=== PATIENT | male | born 2000 | race Caucasian/White ===

== ENCOUNTER 2018-04-02 18:11 | Observation (INO) | payer BC, OTHER ==
--- NOTE | 2018-04-02 18:35 | ED ---
Respiratory - HPI Summary HPI Summary: This patient is a 18 year [facility] a female with a chief complaint of sharp mid sternal CP worse with inspiration that began yesterday. The patient rates the pain 5/10 in severity. Pt reports "I feel like Im not getting enough air, Im not short of breath, it just hurts." Patient denies n/v/d, fever, chills, cough, and exposure to sick person. Pt reports hx of two spontaneous pneumothoraxes and said this feels exactly the same. One resolved and the second time he had a tube placed with surgery. Patient had a syncopal episode during the blood draw and states this happens every time. No hx of DVT or PE. Denies any known trauma. - History of Current Complaint Chief Complaint: EDChestWallPain Stated Complaint: PAIN WHEN BREATHING Time Seen by Provider: 04/02/18 18:18 Hx Obtained From: Patient Onset/Duration: Lasting Days, Still Present Timing: Constant Initial Severity: Moderate Current Severity: Moderate Pain Intensity: 5 Sputum Amount: None Associated Signs and Symptoms: Negative - n/v/d, fever, chills, cough, and exposure to sick person - Allergy/Home Medications Allergies/Adverse Reactions: Allergies Allergy/AdvReac Type Severity Reaction Status Date / Time No Known Allergies Allergy Verified 04/02/18 18:16 Home Medications: Home Medications NK [No Home Medications Reported] 04/02/18 [History Confirmed 04/02/18] PMH/Surg Hx/FS Hx/Imm Hx Endocrine/Hematology History: Denies: Hx Bone Marrow Disease Respiratory History: Reports: Other Respiratory Problems/Disorders - pneumothorax History: Denies: Hx Chronic Renal Failure EENT History: Denies: Hx Deafness Psychiatric History: Denies: Hx Post Traumatic Stress Disorder Infectious Disease History: No Infectious Disease History: Denies: Traveled Outside the [place] in Last 30 Days - Family History Known Family History: Negative: Respiratory Disease, Seizure Disorder, Blood Disorder - Social History Occupation: Student Alcohol Use: None Substance Use Type: Reports: None Smoking Status (MU): Never Smoked Tobacco Review of Systems Negative: Fever, Chills Positive: Chest Pain Positive: Shortness Of Breath - I feel like Im getting enough air, Im not short of breath, it just hurts. Negative: Cough Negative: Vomiting, Diarrhea, Nausea All Other Systems Reviewed And Are Negative: Yes Physical Exam - Summary Physical Exam Summary: GENERAL: Patient is a well-developed and nourished M who is lying comfortable in the stretcher. Patient is not in any acute respiratory distress. HEAD AND FACE: Normocephalic EYES: PERRLA, EOMI x 2. EARS: Hearing grossly intact. MOUTH: Oropharynx within normal limits. NECK: Supple, trachea is midline, no adenopathy, no JVD, no carotid bruit. CHEST: Symmetric, no tenderness at palpation LUNGS: Clear to auscultation bilaterally. No wheezing or crackles. CVS: Regular rate and rhythm, S1 and S2 present. Faint murmur ABDOMEN: Soft, non-tender. Bowel sounds are normal. No abdominal abnormal pulsations. EXTREMITIES: Full ROM in all major joints, no edema, no cyanosis or clubbing. NEURO: Alert and oriented x 3. No acute neurological deficits. Speech is normal and follows commands. SKIN: Dry and warm Triage Information Reviewed: Yes Vital Signs On Initial Exam: Initial Vitals Temp Pulse Resp BP Pulse Ox 97.8 F 75 18 143/78 98 04/02/18 18:13 04/02/18 18:13 04/02/18 18:13 04/02/18 18:13 04/02/18 18:13 Vital Signs Reviewed: Yes Diagnostics - Vital Signs Vital Signs Temp Pulse Resp BP Pulse Ox 04/02/18 18:13 97.8 F 75 18 143/78 98 - Laboratory Result Diagrams: 04/03/18 06:14 04/03/18 06:14 Lab Statement: Any lab studies that have been ordered have been reviewed, and results considered in the medical decision making process. - Radiology CXR Radiology Interpretation Completed By: ED Physician Summary of Radiographic Findings: no pneumothorax. Pending official report. - EKG 1828 Cardiac Rate: NL EKG Rhythm: Sinus Rhythm - at 86 BPM Summary of EKG Findings: findings suggestive of bilateral atrial enlargement, q waves in the lateral leads Disposition - Course Assessment/Plan: This patient presents to the ED with left sided substernal CP. Work up is unremarkable including a negative troponin and D dimer. On exam there is a faint murmur present. The EKG was abnormal and the patient was be placed in the CDU for an echo since it is after hours and patient has no outpatient follow up here in [facility]. I discussed the case with Dr. De Leon who agrees with the admission. . An EKG reveals NSR 86 BPM, findings suggestive if bilateral atrial enlargement,. q waves in the lateral leads. CXR reveals, no pneumothorax. Pending official report. - Diagnoses Provider Diagnoses: Chest pain - Physician Notifications Discussed Care Of Patient With: Nelly De Leon Time Discussed With Above Provider: 19:35 Instructed by Provider To: Admit As Inpatient Discharge - Sign-Out/Discharge Documenting (check all that apply): Patient Departure - admitted - Discharge Plan Condition: Fair Disposition: ADMITTED TO [facility] - Billing Disposition and Condition Condition: FAIR Disposition: Admitted to [facility] - Attestation Statements Document Initiated by Scribe: Yes Documenting Scribe: Joseph Torres Provider For Whom Alfrede is Documenting (Include Credential): Joselin Brown MD Scribe Attestation: Joseph Jackson , scribed for Joselin Brown MD on 04/03/18 at 0739. Scribe Documentation Reviewed: Yes Provider Attestation: The documentation as recorded by the Joseph carias accurately reflects the service I personally performed and the decisions made by me, Joselin Brown MD
[2018-04-02 18:46] LABS: ABS Basophils 0 10^3/ul (0-0.2); ABS Eosinophils 0 10^3/ul (0-0.6); ABS Lymphocytes 1.7 10^3/ul (1.0-4.8); ABS Monocytes 0.4 10^3/ul (0-0.8); ABS Neutrophils 3.2 10^3/ul (1.5-7.7); ABS Nucleated RBC 0 10^3/ul; Eosinophil % 0.8 % (0-6); Hematocrit 47 % (42-52); Hemoglobin 16.1 g/dl (14.0-18.0); Lymphocyte % 32.2 % (25-47); Mean Corpuscular HGB Conc 34 g/dl (31-36); Mean Corpuscular Hemoglobin 32 pg (27-31); Mean Corpuscular Volume 94 fL (80-94); Mean Platelet Volume 8.9 fL (7.4-10.4); Nucleated Red Blood Cells % 0; Platelet Count 225 10^3/ul (150-450); Red Cell Distribution Width 13 % (10.5-15); White Blood Count 5.4 10^3/ul (3.5-10.8)
[2018-04-02 18:55] LABS: INR 1.21 (0.77-1.02)
[2018-04-02 19:06] LABS: EGFR Non-African American 96.4 (>60)
[2018-04-02] MEDS ORDERED: Ketorolac INJ* 30 MG/ML 1 ML VIAL IV PUSH ONE (19:29)
[2018-04-02] MEDS ORDERED: Ondansetron INJ* 2 MG/ML VIAL IV PRN (19:34)
[2018-04-02] MEDS ORDERED: Omeprazole CAP* 20 MG PO ONE (19:42)
[2018-04-02] MEDS ORDERED: Ketorolac INJ* 15 MG/ML 1 ML VIAL IV PUSH PRN (19:43)
--- NOTE | 2018-04-02 21:15 | ADMNOTE ---
Subjective Date of Service: 04/02/18 Interval History: code status full this is admission h/p hpi 18 yr old wm with hx of left spontaneous ptx at age 14 otherwise with no sig hx presented to er with chest pain last night. pt was lifting heavy stuff right beforehands then had this chest pain. pain described constant muscle pull type sharp localized on anterior chest around the upper sternum but towards the left side. sleep makes it better and not moving makes it better. but later he took a deep breath, at the end of each breath, he will has chest pain starting. ---> [facility]---> they do not have x ray and referred pt to er. initial ekg and trop neg but er dr heard a murmur and echo already went home also she was worried about myocarditis pmhx none pshx hx of left spontaneous ptx twice at age 14 first time was small ntd then one week afterwards he had a second episode of ptx which he had to have chest tube placement no recurrence since 2013 social no cig no etoh no [facility] [employer] [facility] one maternal cousin is a type i dm Family History: Findings - as above Social History: Findings - as above Past Medical History: Findings - as above Review of Systems - Measurements Intake and Output: Intake and Output Last 24 Hours 03/31/18 04/01/18 04/02/18 04/03/18 06:59 06:59 06:59 06:59 Weight 155 lb - Review of Systems General Comments: pertinent as per hpi Objective Active Medications: Cyclobenzaprine HCl (Flexeril Tab*) 10 mg PO TID [facility] Docusate Sodium (Colace Cap*) 100 mg PO BID [facility] Sodium Chloride (Ns 0.9% 1000 Ml*) 1,000 mls @ 125 mls/hr IV PER RATE [facility] Ketorolac Tromethamine (Toradol Inj*) 15 mg IV PUSH Q6H PRN PRN Reason: PAIN Ondansetron HCl (Zofran Inj*) 4 mg IV Q6H PRN PRN Reason: NAUSEA/VOMITING Senna (Senokot Tab*) 1 tab PO BID [facility] Vital Signs - 8 hr 04/02/18 04/02/18 04/02/18 18:13 18:24 18:26 Temperature 97.8 F Pulse Rate 75 76 81 Respiratory 18 20 18 Rate Blood Pressure 143/78 151/90 (mmHg) O2 Sat by Pulse 98 98 97 Oximetry 04/02/18 04/02/18 04/02/18 18:34 18:35 18:55 Temperature Pulse Rate 59 62 63 Respiratory 14 13 19 Rate Blood Pressure 90/45 103/47 109/80 (mmHg) O2 Sat by Pulse 99 99 99 Oximetry 04/02/18 04/02/18 04/02/18 19:00 19:24 19:54 Temperature Pulse Rate 69 67 91 Respiratory 17 15 22 Rate Blood Pressure 124/64 138/77 (mmHg) O2 Sat by Pulse 99 98 98 Oximetry 04/02/18 20:00 Temperature Pulse Rate 72 Respiratory 19 Rate Blood Pressure (mmHg) O2 Sat by Pulse 98 Oximetry Appearance: nad Eyes: No Scleral Icterus, PERRLA Ears/Nose/Mouth/Throat: NL Teeth, Lips, Gums, Clear Oropharnyx, Mucous Membranes Moist Neck: NL Appearance and Movements; NL JVP, Trachea Midline, No Thyroid Enlargement, Masses Respiratory: Symmetrical Chest Expansion and Respiratory Effort, Clear to Auscultation, - - chest tenderness is reproducible when anterior chest is pressured Cardiovascular: NL Sounds; No Murmurs; No JVD, RRR, No Edema Abdominal: NL Sounds; No Tenderness; No Distention Extremities: No Edema, No Clubbing, Cyanosis, - - from times four exts Neurological: Alert and Oriented x 3, NL Sensation, NL Muscle Strength and Tone Result Diagrams: 04/03/18 06:14 04/03/18 06:14 Diagnostic Imaging: ekg ns early replorization ekg changes seen Assess/Plan/Problems-Billing Assessment: this is a 18 yr old wm with hx of ptx at at age 14 no recurrence since presented to er with c/o of chest pain after lifting heavy stuff his chest pain is reproducible when anterior chest is pressured. er dr heart murmur and wants an echo and was worried about myocaritis and wanted pt to be observed - Patient Problems (1) Atypical chest pain Status: Acute Code(s): R07.89 - OTHER CHEST PAIN SNOMED Code(s): 413421717 Comment: tele with eva echo ck cpk/mb and trop toradol for pain trial of flexerial ck tsh and lipid (2) Hx of pneumothorax Status: Acute Code(s): Z87.09 - PERSONAL HISTORY OF OTHER DISEASES OF THE RESPIRATORY SYSTEM SNOMED Code(s): 880490869 Comment: no recurrence since 2013 moniter
[2018-04-02] MEDS: NS 0.9% 1000 ML* 1,000 ML IV SCH (21:22)
[2018-04-02] MEDS: Cyclobenzaprine TAB* 10 MG PO SCH (21:24)
[2018-04-02] MEDS: Senna TAB PO SCH (21:24)
[2018-04-02] MEDS: Docusate CAP* 100 MG PO SCH (21:24)
[2018-04-03] MEDS: NS 0.9% 1000 ML* 1,000 ML IV SCH (05:25)
[2018-04-03 06:38] LABS: Urine Appearance Clear; Urine Blood Negative (Negative); Urine Color Yellow; Urine Ketones Negative (Negative); Urine Protein Negative (Negative); Urine Specific Gravity 1.016 (1.010-1.030); Urine Urobilinogen Negative (Negative)
[2018-04-03 06:46] LABS: ABS Basophils 0 10^3/ul (0-0.2); ABS Eosinophils 0.1 10^3/ul (0-0.6); ABS Lymphocytes 2.1 10^3/ul (1.0-4.8); ABS Monocytes 0.3 10^3/ul (0-0.8); ABS Neutrophils 3.4 10^3/ul (1.5-7.7); ABS Nucleated RBC 0 10^3/ul; Hematocrit 44 % (42-52); Hemoglobin 14.8 g/dl (14.0-18.0); Mean Corpuscular HGB Conc 34 g/dl (31-36); Mean Corpuscular Hemoglobin 32 pg (27-31); Mean Corpuscular Volume 94 fL (80-94); Mean Platelet Volume 9.1 fL (7.4-10.4); Nucleated Red Blood Cells % 0.2; Platelet Count 183 10^3/ul (150-450); Red Blood Count 4.63 10^6/ul (4.00-5.40); Red Cell Distribution Width 13 % (10.5-15); White Blood Count 5.9 10^3/ul (3.5-10.8)
[2018-04-03 07:08] LABS: EGFR Non-African American 95.3 (>60)
[2018-04-03] MEDS: Senna TAB PO SCH (10:09)
[2018-04-03] MEDS: Docusate CAP* 100 MG PO SCH (10:09)
[2018-04-03] MEDS: Cyclobenzaprine TAB* 10 MG PO SCH ×2 (10:09→17:07)
--- NOTE | 2018-04-03 11:06 | ECHO ---
Patient: WILLIAN CASTILLO [facility] Rec#: [id number] : 2000 Date: 04/03/2018 Age: 18y Height: 183 cm / 72.0 in Weight: 70.3 kg / 154.9 lbs Sex: M BSA: 1.9 Room#: [facility] Admit Date#: 04/02/2018 Type: Inpatient Referring: Nelly De Leon Reading: Skip Gonzalez MD Paramedic: Anette Jacome RN RDCS Transthoracic Echocardiogram Indication: Cardiac murmur BP: 100/59 HR: 54 Rhythm: Bradycardia Findings History: Left spontaneous pneumothorax at age 14 Technical Comments: The study quality is fair. Left Ventricle: The left ventricular chamber size is normal. Global left ventricular wall motion and contractility are within normal limits. There is normal left ventricular systolic function. The estimated ejection fraction is 50-55%. Normal left ventricular diastolic filling is observed. Left Atrium: The left atrial chamber size is normal. Right Ventricle: Moderator Band present. The right ventricular cavity size is normal. The right ventricular global systolic function is normal. Right Atrium: The right atrial cavity size is normal. Aortic Valve: The aortic valve is trileaflet. There is a trace of aortic regurgitation. There is no evidence of aortic stenosis. Mitral Valve: The mitral valve leaflets do not appear thickened. There is a trace of mitral regurgitation. Tricuspid Valve: The tricuspid valve leaflets are normal. There is trace tricuspid regurgitation. Unable to estimate the right ventricular systolic pressure. Pulmonic Valve: The pulmonic valve appears normal. There is a trace pulmonic regurgitation. There is no pulmonic stenosis. Pericardium: There is no significant pericardial effusion. Aorta: There is no dilatation of the ascending aorta. There is no dilatation of the aortic arch. There is no dilation of the aortic root. Pulmonary Artery: The main pulmonary artery appears normal. Venous: The inferior vena cava appears normal in size. There is a greater than 50% respiratory change in the inferior vena cava dimension. Conclusions There is normal left ventricular systolic function. The estimated ejection fraction is 50-55%. Global left ventricular wall motion and contractility are within normal limits. Normal cardiac chamber sizes. Functionally benign heart valves. There is no prior echocardiogram available to compare with at this time. Measurements Name Value Normal Range RVIDd (AP) 2D 2.5 cm (0.9 - 2.6) RVDdMajor (2D) 4 cm (2.2 - 4.4) RAd ISD 4CH 4.4 cm (3.4 - 4.9) RA (A4C)W 4.1 cm (2.9 - 4.6) IVSd (2D) 0.8 cm (0.6 - 1) LVPWd (2D) 0.9 cm (0.6 - 1) LVIDd (2D) 4.3 cm (3.6 - 5.4) LVIDs (2D) 3 cm - LV FS (2D) 30 % (25 - 45) Aortic Annulus 1.9 cm (1.4 - 2.6) Ao root diameter (2D) 2.9 cm (2.1 - 3.5) Ascending Ao 2.6 cm (2.1 - 3.4) Aortic arch 2.2 cm (1.8 - 3.4) LA dimension (AP) 2D 3.1 cm (2.3 - 3.8) LAd ISD 4CH 4.7 cm (2.9 - 5.3) LA ISD 4CH W 4.4 cm (2.5 - 4.5) Name Value Normal Range LA ESV BP (A/L) index 18.8 ml/m2 - Name Value Normal Range MV E-wave Vmax 1.1 m/sec - MV deceleration time 264 msec - MV A-wave Vmax 0.68 m/sec - MV E:A ratio 1.6 ratio - LV septal e' Vmax 0.11 m/sec - LV lateral e' Vmax 0.2 m/sec - LV E:e' septal ratio 10 ratio - LV E:e' lateral ratio 5.5 ratio - Name Value Normal Range AV Vmax 1.3 m/sec - AV VTI 31.3 cm - AV peak gradient 7 mmHg - AV mean gradient 4 mmHg - LVOT diameter 2 cm - LVOT Vmax 1.1 m/sec - LVOT VTI 24.5 cm - LVOT peak gradient 5 mmHg - LVOT mean gradient 3 mmHg - FREDI (continuity Vmax) 2.7 cm2 - FREDI (continuity VTI) 2.5 cm2 - ABHAY Vmax 1.3 m/sec - Name Value Normal Range IVC diameter 2 cm - Name Value Normal Range PV Vmax 0.95 m/sec -
[2018-04-03 12:29] VITALS: BP 121/67
--- NOTE | 2018-04-04 03:01 | DS ---
DISCHARGE SUMMARY: DATE OF ADMISSION: 04/02/18 DATE OF DISCHARGE: 04/03/18 FINAL DISCHARGE DIAGNOSIS: Chest pain, atypical, musculoskeletal. HOSPITAL COURSE: The patient was admitted on 04/02/18 secondary to sudden onset of chest pain, start ed night before admitted. He was lifting heavy stuff, prior to the onset of the pain and he develope d sudden muscle kind of picture of chest discomfort. It was in the anterior of the chest, upper ster num radiating to the left. He felt bothered with standing still, not moving and it hurt when he took deep breath. He did have history of spontaneous pneumothorax when he was at the age of 14 and given the sudden onset of the pain, he presented to the emergency room. His initial workup was all fairly unremarkable. However, there was a documented murmur on exam by the ER physician. Hence they were concerned him from going home and medicine service was consulted for further evaluation. The patient was admitted by the hospitalist naya at night for observation and he was seen and evaluated by me this morning. His hospital course was reviewed and will be summarized as follows. His CBC was f airly unremarkable. No leukocytosis. Normal H and H. His D-dimer was less than 200 and his entry level chemist ry revealed negative troponin x4 set with negative CPK and CK/MB. I came in this morning, I reviewed his EKG, which was fairly normal other than bradycardia. He had no ischemic changes, ST changes. T here was no ESR or CRP given the concern of myocarditis that was entertained by the ER physician. I did send for a stat ESR and CRP to be added to the ER lab and his ESR was 2 and his CRP was less than 1, therefore, made the likelihood of myocarditis or pericarditis very unlikely. His chest x-ray als o was on order, reviewed and did not show any acute disease. His echocardiogram was also done, revea led normal ejection fraction 55%. No evidence of systolic or diastolic dysfunction or any significan t valvular disease. The patient was seen and evaluated by me again early afternoon and he was cleare d for discharge with the diagnosis of atypical chest pain. PHYSICAL EXAMINATION: His vitals, temperature 98, pulse 66 to 68 regular, respiratory rate 18, satti ng 100% on room air and blood pressure 123/59. General: He is awake, alert, oriented, no apparent or cardiac or respiratory distress. Finish his sentence as full sentence. Head and neck: Normocephali c, atraumatic. Supple. Extraocular muscles intact. Moist mucosa membrane. No JVD. No carotid brui t appreciated. His lungs are clear to auscultation. Some minimal bibasilar crackles, which probably from his atelectasis. Cardiovascular: S1 and S2. Regular rate and rhythm. I could not appreciated any murmur or frictional rub. Abdomen: Positive bowel sounds. Soft, nontender, nondistended. Extr emities: There is no pedal edema. Good peripheral pulse. Moving all extremities x4 with no deficit. DIE DESIGNER APPRENTICE: No motor or focal sensory deficits. Skin: There is no significant rash or lesion. SIGNIFICANT DIAGNOSTIC STUDIES: CBC, chemistry unremarkable. Troponin negative x4. ESR less than 2 . CRP less than 1. Chest x-ray, no acute disease. 2D echo, ejection fraction 55%, no valvular disease. No systolic or diastolic dysfunction. EKG normal sinus rhythm, bradycardiac for the rate however, no ST or T-wave changes to suggest ischem ia. DISCHARGE MEDICATIONS: Ibuprofen 2 mg take two tab as needed every 6 hours with food for pain. [id number]/[facility] #: [id number]
== END 2018-04-03 15:00 | disposition home or self-care (01) ==
LOC: ED 18:11 → MED 19:34
PROVIDERS: ADMIT Internal Medicine; ATTEND Internal Medicine
DX: R07.89 Other chest pain (principal); Z87.09 Personal history of other diseases of the respiratory system; R06.02 Shortness of breath
CPT/HCPCS: 36415; 71046; 80048; 80053; 80061; 80307; 81003; 82550; 82553; 83605; 84443; 84484; 85025; 85379; 85610; 85652; 85730; 86140; 93005; 93306; 96374; 96375; 99284; A9270-GY; J1885